=== PATIENT | male | born 1995 | race American Indian/Alaskan Native ===

== ENCOUNTER 2016-10-09 21:22 | Emergency (ER) | payer SELFPAY ==
[2016-10-09 22:04] VITALS: BP 120/75
--- NOTE | 2016-10-11 08:48 | ED Elopement Review ---
ED Pt Elopement review - Call Back decision Pt Call Back Decision: No action required
== END 2016-10-10 02:00 | disposition left against medical advice (07) ==
LOC: ED 21:22
DX: R07.9 Chest pain, unspecified (principal); R53.1 Weakness; M54.9 Dorsalgia, unspecified; Z53.21 Procedure and treatment not carried out due to patient leaving prior to being seen by health care provider
CPT/HCPCS: 93005; 93010

== ENCOUNTER 2016-12-02 07:45 | Emergency (ER) | payer SELFPAY ==
[2016-12-02 08:02] VITALS: BP 111/66
--- NOTE | 2016-12-02 08:33 | Emergency Department Report ---
ED Male HPI - General Chief complaint: Urogenital-Male Stated complaint: BLOOD IN URINE Time Seen by Provider: 12/02/16 08:19 Source: patient Mode of arrival: Ambulatory Limitations: No Limitations - History of Present Illness Initial comments: 21 year old male presents with penile discharge. states that he has had GC in the past. denies penile pain or testicle pain and swelling. - Related Data Home Medications Medication Instructions Recorded Confirmed Last Taken No Known Home Medications [No 11/02/15 11/02/15 Unknown Reported Home Medications] Allergies Allergy/AdvReac Type Severity Reaction Status Date / Time No Known Allergies Allergy Unverified 11/02/15 12:55 ED Review of Systems ROS: Stated complaint: BLOOD IN URINE Other details as noted in HPI Constitutional: denies: chills, fever Eyes: denies: eye pain, eye discharge, vision change ENT: denies: ear pain, throat pain Respiratory: denies: cough, shortness of breath, wheezing Cardiovascular: denies: chest pain, palpitations Endocrine: no symptoms reported Gastrointestinal: denies: abdominal pain, nausea, diarrhea Genitourinary: discharge. denies: urgency, dysuria Musculoskeletal: denies: back pain, joint swelling, arthralgia Skin: denies: rash, lesions Neurological: denies: headache, weakness, paresthesias Psychiatric: denies: anxiety, depression Hematological/Lymphatic: denies: easy bleeding, easy bruising ED Past Medical Hx - Past Medical History Previous Medical History?: No - Surgical History Past Surgical History?: Yes Hx Appendectomy: Yes (2011) - Social History Smoking Status: Current Every Day Smoker Substance Use Type: Alcohol, Marijuana - Medications Home Medications: Home Medications Medication Instructions Recorded Confirmed Last Taken Type No Known Home Medications [No 11/02/15 11/02/15 Unknown History Reported Home Medications] ED Physical Exam - General Limitations: No Limitations General appearance: alert, in no apparent distress - Head Head exam: Present: atraumatic, normocephalic - Eye Eye exam: Present: normal appearance - ENT ENT exam: Present: mucous membranes moist - Neck Neck exam: Present: normal inspection - Respiratory Respiratory exam: Present: normal lung sounds bilaterally. Absent: respiratory distress - Cardiovascular Cardiovascular Exam: Present: regular rate, normal rhythm. Absent: systolic murmur, diastolic murmur, rubs, gallop - GI/Abdominal GI/Abdominal exam: Present: soft, normal bowel sounds - Rectal Rectal exam: Present: deferred - exam: Present: normal inspection. Absent: testicular tenderness, urethral discharge, scrotal swelling, vertical testicular lie External exam: Present: normal external exam - Extremities Exam Extremities exam: Present: normal inspection - Back Exam Back exam: Present: normal inspection - Neurological Exam Neurological exam: Present: alert, oriented X3 - Psychiatric Psychiatric exam: Present: normal affect, normal mood - Skin Skin exam: Present: warm, dry, intact, normal color. Absent: rash ED Course Vital Signs 12/02/16 07:59 Temperature 98.6 F Pulse Rate 65 Respiratory 16 Rate Blood Pressure 111/66 O2 Sat by Pulse 100 Oximetry ED Medical Decision Making - Medical Decision Making Patient is resting comfortably in no acute distress at this time. Didn't denies any pain. We'll treat for STD. Critical care attestation.: If time is entered above; I have spent that time in minutes in the direct care of this critically ill patient, excluding procedure time. ED Disposition Clinical Impression: Penile discharge, Possible exposure to STD Disposition: DISCHARGED TO HOME OR SELFCARE Is pt being admited?: No Does the pt Need Aspirin: No Condition: Good Instructions: Safe Sex (ED) Referrals: PRIMARY CARE, [Primary Care Provider] - 3-5 Days Time of Disposition: 08:34
[2016-12-02] MEDS ORDERED: ZITHROMAX PO ONE (08:36)
[2016-12-02] MEDS ORDERED: XYLOCAINE 1% MPF 5 mL INFILTRATI ONE (08:36)
[2016-12-02] MEDS ORDERED: ROCEPHIN IM ONE (08:36)
== END 2016-12-02 09:18 | disposition home or self-care (01) ==
LOC: ED 07:45
DX: R36.9 Urethral discharge, unspecified (principal); F17.200 Nicotine dependence, unspecified, uncomplicated; F12.90 Cannabis use, unspecified, uncomplicated
CPT/HCPCS: 96372; 99282; J0696

== ENCOUNTER 2017-07-16 05:02 | Emergency (ER) | payer SELFPAY ==
[2017-07-16 05:14] VITALS: BP 113/82
[2017-07-16 06:58] LABS: Bilirubin,Urine NEG (Negative); Blood,Urine NEG (Negative); Ketones,Urine NEG (Negative); Leukocyte Esterase,Urine MOD (Negative); Mucus,Urine 3+ /HPF; Nitrite,Urine NEG (Negative); Protein,Urine <15 mg/dL mg/dL (Negative)
== END 2017-07-16 06:26 | disposition left against medical advice (07) ==
LOC: ED 05:02
DX: R31.9 Hematuria, unspecified (principal); Z53.21 Procedure and treatment not carried out due to patient leaving prior to being seen by health care provider
CPT/HCPCS: 81001; 87591

== ENCOUNTER 2019-01-15 08:00 | Emergency (ER) | payer OTHER ==
[2019-01-15 08:05] VITALS: BP 131/77
--- NOTE | 2019-01-15 09:19 | Cat Scan Report ---
PROCEDURE: CT HEAD/BRAIN WO CON TECHNIQUE: Computerized tomography of the head was performed without contrast material. CT DOSE LENGTH PRODUCT: 1035.5 mGy-cm. HISTORY: syncope COMPARISONS: None currently available. FINDINGS: There is no evidence for acute ischemia. There is no hemorrhage. There is no midline shift. There is no hydrocephalus. There is no mass. Age appropriate youngblood-white matter attenuation is noted. There is no calvarial fracture. The temporal bones demonstrate aerated mastoid air cells. The middle ears appear unremarkable. Paranasal sinuses are unremarkable. Globes are intact. IMPRESSION: * No acute intracranial findings. This document is electronically signed by Javad Madera MD., January 15 2019 09:16:44 AM ET
--- NOTE | 2019-01-15 09:53 | Emergency Department Report ---
ED Syncope HPI - General Chief Complaint: Fall Stated Complaint: FELL AND HIT HEAD Time Seen by Provider: 01/15/19 09:25 Source: patient Exam Limitations: no limitations - History of Present Illness Initial Comments: Mr. Trejo is a 23-year-old healthy male who presents with syncope at home. He has not been able to sleep due to severe stress issues and relationship problems. He has a history of depressed mood. However he does not have access to a counselor. Never been seen by a therapist or mental health specialist. Today this morning he was getting out to bed to get a glass of water. He then saw spots and collapsed to the ground. Hit his head on the counter. His brother brought him to the ED. He lives with his father. He has had a history of suicidal ideation. Has been trying to handle his depression by himself. At this time he states he just wants to sleep. Timing/Prior Episodes: no prior history, single episode today Precipitating Factors: Positive: lightheadedness, other (saw spots, tunnel vision, blurry vision after standing) Context: standing, emotional stress Loss of Consciousness: brief (seconds) Current Symptoms: back to normal - Related Data Allergies/Adverse Reactions: Allergies No Known Allergies Allergy (Verified 01/15/19 08:02) Home Medications: Ambulatory Orders Azithromycin Oral Liqd [Zithromax 200 MG/5 ML ORAL LIQ] 250 mg PO QDAY 5 Days #37.5 ml 09/17/18 Cetirizine HCl 10 ml PO QAM 14 Days #140 solution 09/17/18 Fluticasone [Flonase] 1 spray NS QDAY 14 Days #1 bottle 09/17/18 prednisoLONE [Prednisolone] 20 ml PO QAM 5 Days #100 solution 09/17/18 ED Review of Systems ROS: Stated complaint: FELL AND HIT HEAD Other details as noted in HPI Comment: All other systems reviewed and negative Constitutional: denies: fever, malaise Respiratory: denies: cough Cardiovascular: denies: palpitations ED Past Medical Hx - Past Medical History Previous Medical History?: No - Surgical History Hx Cholecystectomy: Yes Hx Appendectomy: Yes (2011) - Social History Smoking Status: Current Every Day Smoker Substance Use Type: Alcohol, Marijuana - Medications Home Medications: Home Medications Medication Instructions Recorded Confirmed Last Taken Type Azithromycin Oral Liqd [Zithromax 250 mg PO QDAY 5 Days #37.5 ml 09/17/18 Unknown Rx 200 MG/5 ML ORAL LIQ] Cetirizine HCl 10 ml PO QAM 14 Days #140 solution 09/17/18 Unknown Rx Fluticasone [Flonase] 1 spray NS QDAY 14 Days #1 bottle 09/17/18 Unknown Rx prednisoLONE [Prednisolone] 20 ml PO QAM 5 Days #100 solution 09/17/18 Unknown Rx ED Physical Exam - General Limitations: No Limitations General appearance: alert, in no apparent distress - Head Head exam: Present: atraumatic, normocephalic - Eye Eye exam: Present: normal appearance - ENT ENT exam: Present: mucous membranes moist - Neck Neck exam: Present: normal inspection, full ROM - Respiratory Respiratory exam: Present: normal lung sounds bilaterally. Absent: respiratory distress, wheezes, rales, rhonchi - Cardiovascular Cardiovascular Exam: Present: regular rate, normal rhythm, normal heart sounds. Absent: systolic murmur, diastolic murmur, rubs, gallop - GI/Abdominal GI/Abdominal exam: Present: soft, normal bowel sounds. Absent: distended, tend erness, guarding - Rectal Rectal exam: Present: deferred - Extremities Exam Extremities exam: Present: normal inspection - Back Exam Back exam: Present: normal inspection - Neurological Exam Neurological exam: Present: alert, oriented X3 - Psychiatric Psychiatric exam: Present: normal affect, normal mood - Skin Skin exam: Present: warm, dry, intact, normal color. Absent: rash ED Course Vital Signs 01/15/19 08:04 Temperature 98.0 F Pulse Rate 79 Respiratory 16 Rate Blood Pressure 131/77 O2 Sat by Pulse 100 Oximetry ED Medical Decision Making - EKG Data -: EKG Interpreted by Me - EKG Data Interpretation: nonspecific ST-T wave [place] 01/15/19 11:01 EKG obtained 1102 Normal sinus rhythm rate 70 beats minute normal axis normal intervals no ST elevation normal QT intervals 01/15/19 11:15 - Medical Decision Making 1. syncope: vasovagal episode possible orthostasis, no indication of PE or arrhythmia normal EKG for 23-year-old 2. depression, severe symptoms including insomnia and SI, consult recommended outpatient evaluation at [facility]. Critical care attestation.: If time is entered above; I have spent that time in minutes in the direct care of this critically ill patient, excluding procedure time. ED Disposition Clinical Impression: Syncope, Acute depression Disposition: DC-01 TO HOME OR SELFCARE Is pt being admited?: No Does the pt Need Aspirin: No Condition: Stable Instructions: Syncope (ED), Depression (ED) [facility] Forms: Work/School Release Form(ED)
== END 2019-01-15 11:30 | disposition home or self-care (01) ==
LOC: ED 08:00
DX: R55 Syncope and collapse (principal); F32.9 Major depressive disorder, single episode, unspecified; F17.200 Nicotine dependence, unspecified, uncomplicated; F12.10 Cannabis abuse, uncomplicated; Z90.49 Acquired absence of other specified parts of digestive tract; Z90.89 Acquired absence of other organs
CPT/HCPCS: 70450; 82962; 93005; 93010

== ENCOUNTER 2021-05-08 20:43 | Emergency (ER) | payer SELFPAY | END 2021-05-08 20:48 | disposition left against medical advice (07) | LOC: ED 20:43 | DX: S69.92XA Unspecified injury of left wrist, hand and finger(s), initial encounter (principal); Z53.21 Procedure and treatment not carried out due to patient leaving prior to being seen by health care provider; X58.XXXA Exposure to other specified factors, initial encounter; Y93.89 Activity, other specified; Y92.89 Other specified places as the place of occurrence of the external cause; Y99.8 Other external cause status ==

== ENCOUNTER 2021-05-10 12:40 | Emergency (ER) | payer SELFPAY ==
[2021-05-10 13:24] VITALS: BP 107/54
--- NOTE | 2021-05-10 14:02 | XRay Report ---
XR hand 3+V LT INDICATION / CLINICAL INFORMATION: injury. COMPARISON: None available. FINDINGS: BONES/JOINT(S): No acute fracture or subluxation. No significant degenerative changes. SOFT TISSUES: No significant abnormality. ADDITIONAL FINDINGS: None. Signer Name: Josafat Diaz MD Signed: 05/10/2021 1:57 PM Workstation Name: [id number]
--- NOTE | 2021-05-10 14:37 | Emergency Department Report ---
ED Upper Extremity Inj HPI - General Chief Complaint: Extremity Injury, Upper Stated Complaint: LEFT WRIST INJURY Time Seen by Provider: 05/10/21 14:24 Source: patient Mode of arrival: Ambulatory Limitations: No Limitations - History of Present Illness Initial Comments: Patient is a 26-year-old male who presents emergency room complaints of a left wrist injury that occurred 4 days ago. Patient states that he got frustrated and decided to punch a brick wall. He denies any abrasions or lacerations or any cuts to the skin. He denies ever injuring this in the past. He has associated left wrist and left hand pain and swelling. He is able to move all digits. He denies any numbness or weakness. No past medical history. No allergies medications. - Related Data Previous Rx's Medication Instructions Recorded Last Taken Type Azithromycin Oral Liqd [Zithromax 250 mg PO QDAY 5 Days #37.5 ml 09/17/18 Unknown Rx 200 MG/5 ML ORAL LIQ] Cetirizine HCl 10 ml PO QAM 14 Days #140 solution 09/17/18 Unknown Rx Fluticasone [Flonase] 1 spray NS QDAY 14 Days #1 bottle 09/17/18 Unknown Rx prednisoLONE [Prednisolone] 20 ml PO QAM 5 Days #100 solution 09/17/18 Unknown Rx Ibuprofen [Motrin 600 MG tab] 600 mg PO Q8H PRN #20 tablet 05/10/21 Unknown Rx Allergies Allergy/AdvReac Type Severity Reaction Status Date / Time No Known Allergies Allergy Verified 01/15/19 08:02 ED Review of Systems ROS: Stated complaint: LEFT WRIST INJURY Other details as noted in HPI Comment: All other systems reviewed and negative ED Past Medical Hx - Past Medical History Previous Medical History?: No - Surgical History Past Surgical History?: Yes Hx Cholecystectomy: Yes Hx Appendectomy: Yes (2011) - Social History Smoking Status: Never Smoker Substance Use Type: None - Medications Home Medications: Home Medications Medication Instructions Recorded Confirmed Last Taken Type Azithromycin Oral Liqd [Zithromax 250 mg PO QDAY 5 Days #37.5 ml 09/17/18 Unknown Rx 200 MG/5 ML ORAL LIQ] Cetirizine HCl 10 ml PO QAM 14 Days #140 solution 09/17/18 Unknown Rx Fluticasone [Flonase] 1 spray NS QDAY 14 Days #1 bottle 09/17/18 Unknown Rx prednisoLONE [Prednisolone] 20 ml PO QAM 5 Days #100 solution 09/17/18 Unknown Rx Ibuprofen [Motrin 600 MG tab] 600 mg PO Q8H PRN #20 tablet 05/10/21 Unknown Rx ED Physical Exam - General Limitations: No Limitations General appearance: alert, in no apparent distress - Head Head exam: Present: atraumatic, normocephalic - Eye Eye exam: Present: normal appearance - ENT ENT exam: Present: mucous membranes moist - Extremities Exam Extremities exam: Present: other (ttp to the left lateral wrist, left snuffbox ttp, there is edema present to the left dorsal hand, FROM of the LUE, neurovascularly intact) - Neurological Exam Neurological exam: Present: alert, oriented X3 - Psychiatric Psychiatric exam: Present: normal affect, normal mood - Skin Skin exam: Present: warm, dry, intact ED Course Vital Signs 05/10/21 13:23 Temperature 98.2 F Pulse Rate 68 Respiratory 16 Rate Blood Pressure 107/54 [Right] O2 Sat by Pulse 98 Oximetry ED Medical Decision Making - Radiology Data Radiology results: report reviewed Ordering Physician: VICKIE MITCHELL Date of Service: 05/10/21 Procedure(s): XR hand 3+V LT Accession Number(s): [id number] cc: VICKIE MITCHELL Fluoro Time In Minutes: XR hand 3+V LT INDICATION / CLINICAL INFORMATION: injury. COMPARISON: None available. FINDINGS: BONES/JOINT(S): No acute fracture or subluxation. No significant degenerative changes. SOFT TISSUES: No significant abnormality. ADDITIONAL FINDINGS: None. Signer Name: Josafat Diaz MD Signed: 05/10/2021 1:57 PM Workstation Name: [id number] Transcribed By: BETZAIDA Dictated By: Josafat Diaz MD Electronically Authenticated By: Josafat Diaz MD Signed Date/Time: 05/10/21 135 DD/ 56 TD/TT: Print Cancel - Medical Decision Making Patient is a 26-year-old male who presents emergency room complaints of a left wrist injury that occurred 4 days ago. Patient states that he got frustrated and decided to punch a brick wall. He denies any abrasions or lacerations or any cuts to the skin. He denies ever injuring this in the past. He has associated left wrist and left hand pain and swelling. He is able to move all digits. He denies any numbness or weakness. No past medical history. No allergies medications. vitals are normal. on exam: ttp to the left lateral wrist, left snuffbox ttp, there is edema present to the left dorsal hand, FROM of the LUE, neurovascularly intact. XR left hand: BONES/JOINT(S): No acute fracture or subluxation. No significant degenerative changes. SOFT TISSUES: No significant abnormality. ADDITIONAL FINDINGS: None. given prescription for medication. advised pt Please take medication as prescribed as needed. May ice for 15 minutes at a time, rest, elevate the arm. Follow-up with orthopedic doctor. Return to emergency room for any new or worsening symptoms. Critical care attestation.: If time is entered above; I have spent that time in minutes in the direct care of this critically ill patient, excluding procedure time. ED Disposition Clinical Impression: Left wrist pain, Left hand pain Disposition: TO HOME OR SELFCARE Is pt being admited?: No Does the pt Need Aspirin: No Condition: Stable Instructions: RICE Therapy for Routine Care of Injuries, [id number], Hand Pain, Wrist Pain, Adult Additional Instructions: Please take medication as prescribed as needed. May ice for 15 minutes at a time, rest, elevate the arm. Follow-up with orthopedic doctor. Return to emergency room for any new or worsening symptoms. Prescriptions: Ibuprofen [Motrin 600 MG tab] 600 mg PO Q8H PRN #20 tablet PRN Reason: Pain Referrals: PRIMARY MD JEROMY [Primary Care Provider] - 3-5 Days [facility] [Provider Group] - 3-5 Days JIMMY VELASCO MD [Staff Physician] - 3-5 Days Time of Disposition: 14:36 Print Language: AMHARIC
== END 2021-05-10 14:56 | disposition home or self-care (01) ==
LOC: ED 12:40
DX: M79.642 Pain in left hand (principal); M25.532 Pain in left wrist; Z79.899 Other long term (current) drug therapy; Z90.49 Acquired absence of other specified parts of digestive tract